=== PATIENT | female | born 1945 | race American Indian/Alaskan Native ===

== ENCOUNTER 2018-06-27 12:32 | Outpatient (CLI) | payer MEDICARE ==
--- NOTE | 2018-06-27 13:27 | XRay Report ---
XRAY CHEST TWO VIEWS: 06/27/18 12:32:00 CLINICAL: Cough. COMPARISON: None FINDINGS: Normal heart and pulmonary vasculature. The lungs are normally expanded and clear.A chronic midthoracic anterior wedge compression fracture and exaggerated thoracic kyphosis. IMPRESSION: No acute cardiopulmonary process.
== END 2018-06-27 12:33 | disposition home or self-care (01) ==
LOC: SPVIMAG 12:32
PROVIDERS: ATTEND Internal Medicine
DX: M40.294 Other kyphosis, thoracic region (principal)
CPT/HCPCS: 71046